=== PATIENT | male | born 1990 | race Caucasian/White ===

== ENCOUNTER 2019-09-20 13:53 | Emergency (ER) | payer MEDICAID, OTHER ==
[~2019-09-20] VITALS: Ht 170.2 cm; Wt 74.4 kg
--- NOTE | 2019-09-20 14:16 | Emergency Room Report ---
History of Present Illness General Chief Complaint: Medication Refill Source: Patient Present Illness HPI 29-year-old male with history of type 1 diabetes here requesting a medication refill for his strips and lancets. Patient reports that he ran out of strips 2 days ago and has not checked his sugar for 2 days however has been administering insulin. Patient also reports that has not been eating any carbohydrates or sugar as he was afraid of a spike of his sugar. Denies chest pain, shortness of breath, pain palpitation, abdominal pain, nausea vomiting, headache and dizziness. Patient is also requesting needle pens for his insulin and was informed that cannot be refilled in the emergency room and patient to follow-up with his primary care provider or ruling machine set up operator. Patient blood sugar is 49 at bedside however patient denies any loss of consciousness and fatigue. I explained to the patient that having low blood sugar is just as dangerous as having high blood sugar as he was very anxious of taking anything sweet or any carbohydrates at this time. However patient was able to take sandwiches, juice and a banana and that the sugar was raised to 112. Patient stable at time of discharge. Allergies: Coded Allergies: No Known Allergies (Unverified , 09/20/19) Patient History Past Medical History: see triage record Past Surgical History: none Pertinent Family History: none Immunizations: UTD Reviewed Nursing Documentation: PMH: Agreed; PSxH: Agreed Nursing Documentation-PMH Past Medical History: No History, Except For Hx Hypertension: Yes Hx Diabetes: Yes Review of Systems All Other Systems: negative except mentioned in HPI Physical Exam Vital Signs Date Time Temp Pulse Resp B/P (MAP) Pulse Ox O2 Delivery O2 Flow Rate FiO2 09/20/19 14:09 97.7 84 16 113/69 (84) 99 Room Air Sp02 EP Interpretation: reviewed, normal General Appearance: well appearing, no apparent distress Head: normocephalic, atraumatic Eyes: bilateral eye normal inspection, bilateral eye PERRL ENT: hearing grossly normal, normal voice Neck: full range of motion, supple Respiratory: chest non-tender, lungs clear, no rhonchi, no respiratory distress , no wheezing, speaking full sentences Cardiovascular #1: normal inspection, normal peripheral pulses, regular rate, rhythm, no murmur Cardiovascular #2: 2+ radial (R), 2+ radial (L) Gastrointestinal: non tender, soft Rectal: deferred Genitourinary: no CVA tenderness Musculoskeletal: normal inspection, no calf tenderness Neurologic: alert, oriented, normal gait Psychiatric: judgement/insight normal, mood/affect normal Skin: normal color, no rash, warm/dry, well hydrated Lymphatic: no adenopathy Medical Decision Making PA Attestation All my diagnosis and treatment plans were reviewed ad discussed with my supervising physician Dr. Davies Diagnostic Impression: Primary Impression: Encounter for medication refill ER Course 29-year-old male with history of type 1 diabetes here requesting a medication refill for his strips and lancets. Patient reports that he ran out of strips 2 days ago and has not checked his sugar for 2 days however has been administering insulin. Patient also reports that has not been eating any carbohydrates or sugar as he was afraid of a spike of his sugar. Denies chest pain, shortness of breath, pain palpitation, abdominal pain, nausea vomiting, headache and dizziness. Patient is also requesting needle pens for his insulin and was informed that cannot be refilled in the emergency room and patient to follow-up with his primary care provider or ruling machine set up operator. Patient blood sugar is 49 at bedside however patient denies any loss of consciousness and fatigue. I explained to the patient that having low blood sugar is just as dangerous as having high blood sugar as he was very anxious of taking anything sweet or any carbohydrates at this time. However patient was able to take sandwiches, juice and a banana and that the sugar was raised to 112. Patient stable at time of discharge. Ddx considered but are not limited to: DM type I, DM type II, DKA, hypoglycemia Vital signs: are WNL, pt. is afebrile H&PE are most consistent with encounter for medication refill for type 1 diabetes, ORDERS: Accu-Chek at bedside, lancets, and freestyle test strips ED INTERVENTIONS: Accu-Chek at bedside DISCHARGE: At this time pt. is stable for d/c to home. Will provide printed patient care instructions, and any necessary prescriptions. Care plan and follow up instructions have been discussed with the patient prior to discharge. Patient to follow-up with her primary care physician and ruling machine set up operator if worsening symptoms return to the emergency room Last Vital Signs Date Time Temp Pulse Resp B/P (MAP) Pulse Ox O2 Delivery O2 Flow Rate FiO2 09/20/19 14:09 97.7 84 16 113/69 (84) 99 Room Air Disposition: HOME, SELF-CARE Condition: Stable Scripts Lancing Device/Lancets (ACCU-CHEK FASTCLIX LANCET KIT) 1 Each Kit EACH MC Q3HR, #240 1 ea q3h x30 days Prov: Sunshine Funk 09/20/19 Blood Sugar Diagnostic (FREESTYLE LITE TEST STRIPS) 1 Each Strip 1 EACH MC Q3HR for 30 Days, #240 STRIP Prov: Sunshine Funk 09/20/19 Patient Instructions: Medicine Refill at the Emergency Department Sunshine Funk Sep 20, 2019 14:16
[2019-09-20] MEDS ORDERED: FREESTYLE LITE1 EAC1 MC (14:28)
[2019-09-20] MEDS ORDERED: ACCU-CHEK FAST1 EAC1 MC (14:28)
[2019-09-20 14:53] VITALS: BP 113/69
--- NOTE | 2019-09-20 14:54 | NUR ---
ED Nurse Note:blood sugar check 49, PA notified and juice with sugar given
[2019-09-20 15:15] VITALS: BP 113/69
--- NOTE | 2019-09-20 15:15 | NUR ---
ER DISCHARGE NOTE:blood sugar rechecked 112 Patient is cleared to be discharged per ERMD, pt is aox4, on room air, with stable vital signs. pt was given dc and prescription instructions, pt was able to verbalize understanding, pt is able to ambulate with steady gait. pt took all belongings.
== END 2019-09-20 15:15 | disposition home or self-care (01) ==
LOC: EMR 14:40
DX: E10.8 Type 1 diabetes mellitus with unspecified complications (principal); I10 Essential (primary) hypertension
CPT/HCPCS: 82962; Z7502; 99282

== ENCOUNTER 2019-11-28 12:32 | Emergency (ER) | payer MEDICAID ==
[~2019-11-28] VITALS: Ht 172.7 cm; Wt 68.0 kg
[~2019-11-28 12:32] MED LIST: ACCU-CHEK FAST1 EAC1 MC; FREESTYLE LITE1 EAC1 MC
[2019-11-28 12:40] VITALS: BP 99/66
[2019-11-28] MEDS ORDERED: HUMALOG100 UNIT/4 SUBQ (12:44)
[2019-11-28] MEDS ORDERED: LISINOPRIL5 MG ORAL (12:44)
--- NOTE | 2019-11-28 12:44 | NUR ---
ED Nurse Note: patient walked into ED from home with a family member. patient needs medication refill for a humalog insulin. patient is alert awake ambulatory, breathing unlabored and even.
--- NOTE | 2019-11-28 13:05 | Emergency Room Report ---
History of Present Illness General Chief Complaint: Medication Refill Source: Patient Present Illness HPI 29-year-old male with history of type 1 diabetes currently insulin-dependent here with mom requesting refill of insulin. Patient has been here multiple times for same request. Patient reports that went to primary care doctor and brickmason 3 weeks ago and had a refill of insulin however patient also has some mental disability and it is suspected that is not using his insulin correctly as his sugar is always within the 70s to 80s in the morning. Patient sitting comfortably with stable vital signs. Reports that once Humalog however would rather have an alternative to be initiated today. Advised patient that they need to have alternatives initiated by either primary doctor or brickmason. It has been suspected that either patient using way too much insulin or sharing with others due to repeated ER visits for insulin refill as well as getting a refill from primary doctor at the same time. Advised patient who here with his mom to have pharmacist call to confirm if no refill needed. I wrote for Humalog only 10 units a day for 5 days. I explained to the patient the risk of overusing insulin or not using the correctly. Patient refused to get an Accu-Chek. Allergies: Coded Allergies: No Known Allergies (Unverified , 09/20/19) Patient History Past Medical History: see triage record Past Surgical History: none Pertinent Family History: none Immunizations: UTD Reviewed Nursing Documentation: PMH: Agreed; PSxH: Agreed Nursing Documentation-PMH Hx Hypertension: Yes Hx Diabetes: Yes Review of Systems All Other Systems: negative except mentioned in HPI Physical Exam Vital Signs Date Time Temp Pulse Resp B/P (MAP) Pulse Ox O2 Delivery O2 Flow Rate FiO2 11/28/19 12:40 97.7 85 20 99/66 99 Room Air Sp02 EP Interpretation: reviewed, normal General Appearance: well appearing, no apparent distress Head: normocephalic, atraumatic Eyes: bilateral eye normal inspection, bilateral eye PERRL ENT: hearing grossly normal, normal voice Neck: full range of motion, supple, no bony tend Respiratory: lungs clear, no rhonchi, no respiratory distress, no wheezing, speaking full sentences Cardiovascular #1: no edema, no murmur Gastrointestinal: non tender, soft Genitourinary: no vertebral tenderness Musculoskeletal: gait/station normal Neurologic: alert, normal gait Psychiatric: normal inspection, judgement/insight normal Skin: no rash Lymphatic: no adenopathy Medical Decision Making PA Attestation All my diagnosis and treatment plans were reviewed ad discussed with my supervising physician Dr. Davies Diagnostic Impression: Primary Impression: Encounter for medication refill ER Course 29-year-old male with history of type 1 diabetes currently insulin-dependent here with mom requesting refill of insulin. Patient has been here multiple times for same request. Patient reports that went to primary care doctor and brickmason 3 weeks ago and had a refill of insulin however patient also has some mental disability and it is suspected that is not using his insulin correctly as his sugar is always within the 70s to 80s in the morning. Patient sitting comfortably with stable vital signs. Reports that once Humalog however would rather have an alternative to be initiated today. Advised patient that they need to have alternatives initiated by either primary doctor or brickmason. It has been suspected that either patient using way too much insulin or sharing with others due to repeated ER visits for insulin refill as well as getting a refill from primary doctor at the same time. Advised patient who here with his mom to have pharmacist call to confirm if no refill needed. I wrote for Humalog only 10 units a day for 5 days. I explained to the patient the risk of overusing insulin or not using the correctly. Patient refused to get an Accu-Chek. Ddx considered but are not limited to: Malingering, factitious disorder, anxiety Vital signs: are WNL, pt. is afebrile H&PE are most consistent with: Encounter for medication refill ORDERS: Humalog 10 units a day for 5 days did not feel comfortable writing for more as I suspected patient is now using insulin correctly and was even told by brickmason that needs to keep a log of how he is using it and present to her next time they have an appointment. ED INTERVENTIONS: None required at this time. DISCHARGE: At this time pt. is stable for d/c to home. Will provide printed patient care instructions, and any necessary prescriptions. Care plan and follow up instructions have been discussed with the patient prior to discharge. Last Vital Signs Date Time Temp Pulse Resp B/P (MAP) Pulse Ox O2 Delivery O2 Flow Rate FiO2 11/28/19 12:40 97.7 85 20 99/66 (77) 99 Room Air Disposition: HOME, SELF-CARE Condition: Stable Scripts Insulin Lispro (Insulin Lispro) 100 Unit/1 Ml Vial 10 UNIT SQ DAILY for 5 Days, #50 UNITS Prov: Sunshine Funk 11/28/19 Referrals: YESSI DUBON [facility],REFERRING (PCP) Patient Instructions: Medicine Refill at the Emergency Department Additional Instructions: Take medication as directed, you need to follow-up with your brickmason for refills, there is a risk that you are over injecting herself and cannot write for more than 5 days of life of insulin. If worsening symptoms return to emergency room Sunshine Funk Nov 28, 2019 13:05
[2019-11-28] MEDS ORDERED: INSULIN LI100 UNIT/1 SQ (13:07)
[2019-11-28 13:18] VITALS: BP 99/66
--- NOTE | 2019-11-28 13:19 | NUR ---
ER DISCHARGE NOTE: Patient is cleared to be discharged per JET SHRESTHA, pt is aox4, on room air, with stable vital signs. pt was given dc and prescription instructions, pt was able to verbalize understanding, pt id band removed without complications. pt is able to ambulate with steady gait. pt took all belongings.
== END 2019-11-28 13:20 | disposition home or self-care (01) ==
LOC: EMR 12:52
DX: Z76.0 Encounter for issue of repeat prescription (principal); I10 Essential (primary) hypertension; E10.8 Type 1 diabetes mellitus with unspecified complications; Z79.4 Long term (current) use of insulin
CPT/HCPCS: 99282